=== PATIENT | female | born 1965 | race Caucasian/White ===

== ENCOUNTER 2024-03-19 12:51 | Inpatient (IN) ==
--- NOTE | 2024-03-19 13:15 | Emergency Department Note ---
HPI - URI/Sore Throat General Chief Complaint: SOB -Shortness of Breath Stated Complaint: right side pneumonia Time Seen by Provider: 03/19/24 13:08 Source: patient Limitations: no limitations History of Present Illness HPI Narrative: This is a 58 year old female patient that presents to the ER with c/o cough, congestion, and upper back pain. Patient states she was sent here by her PCP to be admitted for failed outpatient therapy for pneumonia. Patient states she has been on 2 rounds of antibiotics as an outpatient and has not gotten any better. Patient denies any chest pain, SOB, abdominal pain, fever, chills or N/V/D. Walking O2 sat 92% here in the ER MD elicited complaint: Reports cough, rhinorrhea and nasal congestion Pertinent past history: Reports pneumonia Exacerbating factors: Reports nothing Relieving factors: Reports nothing Associated symptoms: Reports rhinorrhea, nasal congestion and cough Treatments prior to arrival: Reports none Related Data Allergies Allergy/AdvReac Type Severity Reaction Status Date / Time No Known Drug Allergies Allergy Verified 03/19/24 13:15 Review of Systems Status of ROS 10 or more systems reviewed and unremark able except as noted in history and below Constitutional Denies: fever, chills, change in weight, fatigue, malaise or night sweats Eyes Denies: change in vision, blurry vision, blind spots or light sensitivity Ears, nose, mouth, and throat Reports: nasal discharge and nasal congestion; Denies: throat pain, neck pain, throat swelling, difficulty swallowing, hoarseness, mouth pain, swelling of lips/tongue or dry mouth Cardiovascular Denies: chest pain, palpitations, edema, swelling of feet/ankles or lightheadedness Respiratory Reports: cough; Denies: shortness of breath, wheezing, stridor, pain on inspiration or change in phlegm color Gastrointestinal Denies: abdominal pain, nausea, vomiting, coffee grounds in vomit, heartburn, diarrhea, constipation or bloating Genitourinary Denies: painful urination, urinary frequency, urinary urgency, urinary incontinence, blood in urine or difficulty voiding Musculoskeletal Denies: back pain, neck pain, extremity pain, extremity swelling, joint pain, limited range of motion or joint swelling Integumentary/Breast Denies: rash, itching, redness, skin pain, skin tenderness, skin swelling or sores Neurological Denies: headache, numbness in extremities, weakness in extremities or lack of coordination Psychiatric Denies: anxiety, mood swings, panic attacks, change in sleep pattern or hopelessness Endocrine Denies: excessive urination, excessive thirst, fatigue, cold intolerance or excessive sweating Allergic/Immunologic Denies: hives, throat swelling, tongue swelling, facial swelling or wheezing [facility] Social History Smoking status: current every day smoker Exam Constitutional: normal general appearance and no apparent distress Vital Signs - 24 hr 03/19/24 13:13 03/19/24 13:27 Temperature 97.9 F Pulse Rate 80 Respiratory Rate 22 Blood Pressure 124/56 Pulse Oximetry 92 L 98 Oxygen Delivery Me thod Room Air HENMT: normocephalic, head/scalp atraumatic, hearing grossly normal bilaterally, external ears normal, nasal mucous membranes normal, external nose normal, oral mucous membranes normal, oropharynx normal and dentition normal Eyes: PERRL, EOMs intact bilaterally, conjunctivae normal and no scleral icterus Neck/C-Spine: visual inspection normal and trachea midline Lymph: no lymphadenopathy noted Chest: inspection of chest normal Respiratory: breath sounds equal bilaterally, normal respiratory effort, auscultation abnormal (diminished breath sound), wheezing noted (scattered wheezes), no rales, no retractions and no use of accessory muscles Cardiovascular: normal heart rate noted, regular rhythm noted, no gallop, no rub, no murmur, no JVD, no clicks, peripheral pulses 2+ throughout and no additional abnormal heart sounds Gastrointestinal: abdomen normal to inspection, abdomen soft to palpation, nontender to palpation, nontender to percussion, nondistended, normoactive bowel sounds, no hepatosplenomegaly, no masses, no pulsatile mass, no ascites and no hernia Genitourinary: no CVA tenderness Back/Pelvis: spine normal to inspection Extremities: normal to inspection, normal to palpation, no tenderness, full ROM, no joint enlargement and no deformity Neurology: no movement abnormality noted, no focal motor deficit noted, no sensory deficits noted, gait normal, speech normal, coordination normal, no pronator drift noted, no fasciculations noted and GCS normal Psychiatry: mental status grossly normal, oriented x3, thought process normal, cooperative and affect normal Skin: skin color normal Course Course Hospital Course: 1416: due to low walking O2 sats, failed outpatient therapy and pneumonia, will admit patient to the hospital. VSS, no s/s of acute distress noted Vital Signs Vital signs: Vital Signs Temperature 97.9 F 03/19/24 13:13 Pulse Rate 80 03/19/24 13:13 Respiratory Rate 22 03/19/24 13:13 Blood Pressure 124/56 03/19/24 13:13 Pulse Oximetry 92 L 03/19/24 13:13 Oxygen Delivery Method Room Air 03/19/24 13:13 Temperature 97.9 F 03/19/24 13:13 Pulse Rate 80 03/19/24 13:13 Respiratory Rate 22 03/19/24 13:13 Blood Pressure 124/56 03/19/24 13:13 Pulse Oximetry 98 03/19/24 13:27 Oxygen Delivery Method Room Air 03/19/24 13:13 MDM - URI/Sore Throat Differential Diagnosis Upper Respiratory Differential Diagnosis: upper respiratory infection Medical Records MDM Medical Records Attestation: I reviewed the patient's medical records. Lab Data Attestation: I reviewed the patient's lab results. Labs: Lab Results 03/19/24 Range/Units 13:20 WBC 18.1 H (4.3-9.3) K/uL RBC 5.1 (4.00-5.50) M/uL Hgb 14.0 (12.5-15.8) gm/dL Hct 42.0 (35.9-46.7) % MCV 83.1 (81.0-93.7) fl MCH 27.7 (27.6-32.2) pg MCHC 33.4 (33.1-35.3) g/dl RDW 16.0 H (11.4-14.2) % Plt Count 487 H (152-353) K/uL MPV 7.1 (6.9-10.8) fl Gran % 68.3 (47.8-71.3) % Lymph % (Auto) 24.8 (20.0-43.0) % [place] % (Auto) 5.4 (3.6-9.8) % Eos % (Auto) 0.6 (0.4-2.8) % Baso % (Auto) 0.9 H (0.1-0.85) Lymph # (Auto) 4.5 H (1.1-3.1) [place] # (Auto) 1.0 L (1.1-3.1) Eos # (Auto) 0.1 (0.0-0.2) Baso # (Auto) 0.2 H (0.0-0.1) Absolute Gran (auto) 12.4 H (2.3-6.0) Sodium 126 L (136-145) mmol/L Potassium 3.3 L (3.6-5.2) mmol/L Chloride 90.0 L (98-107) mmol/L Carbon Dioxide 28 (21-32) mmol/L Anion Gap 8.0 (4-14) mEq/L BUN 16 (7-18) mg/dL Creatinine 1.6 H (0.6-1.3) mg/dL Estimated GFR 37.4 (>59.9) Glucose 215 H (70-110) mg/dL Calcium 8.7 (8.5-10.1) mg/dL Total Bilirubin 0.52 (0.0-1.0) mg/dL AST 40 H (15-37) U/L ALT 34 (30-65) U/L Alkaline Phosphatase 140 H (50-136) U/L Total Protein 7.3 (6.4-8.2) g/dL Albumin 3.2 L (3.4-5.0) g/dL Imaging Data Attestation imaging: I have reviewed the pertinent imaging results. Discharge Plan Discharge Patient Disposition: Admitted As Inpatient Condition: Stable Chief Complaint: SOB -Shortness of Breath Clinical Impression: Community acquired pneumonia, Dehydration, Acute renal failure, Acute hyponatremia Print Language: Estonian Referrals: Provider,NO PCP [Primary Care Provider] - Time of Disposition: 14:19
[2024-03-19] MEDS: METHYLPREDNISOLONE SOD SUCC/PF 125 MG/2 ML VIAL IVP ONE (13:18)
[2024-03-19 13:26] LABS: Basophils #(Absolute) Auto 0.2 (0.0-0.1); Basophils%(Percent) Auto 0.9 (0.1-0.85); Eosinophils#(Absolute)Auto 0.1 (0.0-0.2); Eosinophils%(Percent) Auto 0.6 % (0.4-2.8); Granulocytes % - Auto 68.3 % (47.8-71.3); Granulocytes#(Absolute)- Auto 12.4 (2.3-6.0); Mean Corpuscular Volume 83.1 fl (81.0-93.7); Monocytes %(Percent)- Auto 5.4 % (3.6-9.8); Platelet Count 487 K/uL (152-353); White Blood Count 18.1 K/uL (4.3-9.3)
[2024-03-19] MEDS: IPRATROPIUM/ALBUTEROL SULFATE 3 ML AMPUL.NEB INH ONE (13:27)
[2024-03-19 13:36] LABS: Potassium 3.3 mmol/L (3.6-5.2)
[2024-03-19] MEDS ORDERED: 0.9 % SODIUM CHLORIDE MB+ 50 ML IV ONE (14:19)
[2024-03-19] MEDS ORDERED: AZITHROMYCIN 500 MG VIAL ONE (14:19)
[2024-03-19] MEDS ORDERED: CEFTRIAXONE SODIUM 1 GM VIAL ONE (14:19)
[2024-03-19] MEDS ORDERED: 0.9 % SODIUM CHLORIDE 250 ML IV ONE (14:19)
[2024-03-19] MEDS: AZITHROMYCIN 500 MG 500 MG in 0.9 % SODIUM CHLORIDE 250 ML IV ONE (14:20)
[2024-03-19] MEDS: CEFTRIAXONE SODIUM 1 GM in 0.9 % SODIUM CHLORIDE MB+ 50 ML IV STA (14:20)
[2024-03-19] MEDS: 0.9 % SODIUM CHLORIDE 1000 ML 1,000 ML IV STA (14:21)
[2024-03-19] MEDS: POTASSIUM CHLORIDE 20 MEQ TAB.ER.PRT PO ONE (14:42)
[2024-03-19] MEDS ORDERED: POTASSIUM CHLORIDE 20 MEQ TAB.ER.PRT PO ONE (14:42)
[2024-03-19] MEDS ORDERED: bisacodyL 10 MG SUPP.RECT PR PRN (19:17)
[2024-03-19] MEDS ORDERED: MAGNESIUM, ALUMINUM HYDROXIDE 30 ML ORAL.SUSP PO PRN (19:17)
[2024-03-19] MEDS ORDERED: ACETAMINOPHEN 500 MG TABLET PO PRN (19:17)
[2024-03-19] MEDS: 0.9 % SODIUM CHLORIDE 1000 ML 1,000 ML IV SCH (20:05)
[2024-03-19] MEDS: IPRATROPIUM/ALBUTEROL SULFATE 3 ML AMPUL.NEB INH SCH (20:20)
[2024-03-19] MEDS: guaiFENesin 100 MG/5 ML LIQUID PO PRN (20:49)
[2024-03-19] MEDS: METHYLPREDNISOLONE SOD SUCC/PF 40 MG/ML VIAL INJ SCH (23:07)
[2024-03-20] MEDS: HYDRALAZINE HCL 20 MG/ML VIAL IVP PRN (05:45)
[2024-03-20 06:03] LABS: Basophils #(Absolute) Auto 0.1 (0.0-0.1); Basophils%(Percent) Auto 0.4 (0.1-0.85); Granulocytes % - Auto 89.6 % (47.8-71.3); Granulocytes#(Absolute)- Auto 12.6 (2.3-6.0); Hematocrit 37.1 % (35.9-46.7); Mean Corpuscular Volume 82.3 fl (81.0-93.7); Monocytes #(Absolute)- Auto 0.1 (1.1-3.1); Monocytes %(Percent)- Auto 0.8 % (3.6-9.8); Platelet Count 331 K/uL (152-353); White Blood Count 14.1 K/uL (4.3-9.3)
[2024-03-20 06:15] LABS: Potassium 4.2 mmol/L (3.6-5.2)
--- NOTE | 2024-03-20 07:48 | Internal Medicine H&P ---
Internal Medicine - H&P: HPI History of Present Illness Chief complaint: pneumonia,arf,hyponatremia,leukocytosis Narrative: Pt admitted with worsening dyspnea, cough, and CP from home via ER. Had Flu A in with life flight from [place] to [facility]. Discharged from there to home after a few days and reports she never felt like she fully recovered. Started to develop similar symptoms earlier this week and went to urgent care. Started on amoxil and zpack with supportive meds. Seemed to worsen. Presented to ER and found to have atypical PNA, hyponatremia, GIOVANNI, and sepsis (tachypnea, leukocytosis, PNA, GIOVANNI). Pt feels slightly better this AM, but still weak, tired, and dyspneic. No acute events overnight and did rest better. Review of Systems Status of ROS 10 or more systems reviewed and unremark able except as noted in history and below Constitutional Denies: fever, chills, change in weight, fatigue, malaise or night sweats Eyes Denies: change in vision, blurry vision, blind spots or light sensitivity Ears, nose, mouth, and throat Reports: nasal discharge and nasal congestion; Denies: throat pain, neck pain, throat swelling, difficulty swallowing, hoarseness, mouth pain, swelling of lips/tongue or dry mouth Cardiovascular Denies: chest pain, palpitations, edema, swelling of feet/ankles, lightheadedness or shortness of breath with exertion Respiratory Reports: cough; Denies: shortness of breath, wheezing, stridor, pain on inspiration or change in phlegm color Gastrointestinal Denies: abdominal pain, nausea, vomiting, coffee grounds in vomit, heartburn, diarrhea, constipation, bloating or difficulty swallowing Genitourinary Denies: painful urination, urinary frequency, urinary urgency, urinary incontinence, blood in urine or difficulty voiding Musculoskeletal Denies: back pain, neck pain, extremity pain, extremity swelling, joint pain, limited range of motion or joint swelling Integumentary/Breast Denies: rash, itching, redness, skin pain, skin te nderness, skin swelling or sores Neurological Denies: headache, numbness in extremities, weakness in extremities or lack of coordination Psychiatric Denies: anxiety, mood swings, panic attacks, change in sleep pattern or hopelessness Endocrine Denies: excessive urination, excessive thirst, fatigue, cold intolera nce or excessive sweating Allergic/Immunologic Denies: hives, throat swelling, tongue swelling, facial swelling or wheezing [facility] Medical History (Updated 03/20/24 @ 13:32 by Josh Velasquez MD) CAD (coronary artery disease) Anemia Hypothyroid Anxiety Complications affecting other specified body systems, hypertension Social History Smoking status: current every day smoker Problems where you live: no known problems Highest level of school completed/degree received: College Meds Home Medications and Allergies Home Medications Medication Instructions Recorded Confirmed Type albuterol sulfate 2.5 mg/3 mL 2.5 mg inhalation Q8H PRN 03/20/24 03/20/24 History (0.083 %) solution for nebulization shortness of breath or wheezing albuterol sulfate 90 mcg/actuation 2 puff inhalation Q4H PRN 03/20/24 03/20/24 History aerosol inhaler shortness of breath or wheezing amoxicillin 500 mg capsule 1,000 mg PO Q8H 03/20/24 03/20/24 History aspirin 81 mg tablet,delayed 81 mg PO DAILY 03/20/24 03/20/24 History release azithromycin 250 mg tablet See Rx Instructions .Route .COMPLEX 03/20/24 03/20/24 History doxycycline hyclate 100 mg capsule 100 mg PO BID 03/20/24 03/20/24 History empagliflozin 10 mg tablet 10 mg PO DAILY 03/20/24 03/20/24 History (Jardiance) estradiol 1 mg tablet 1 mg PO DAILY 03/20/24 03/20/24 History fluticasone fur. 100 mcg-umeclid 1 inh inhalation DAILY 03/20/24 03/20/24 History 62.5 mcg-vilant 25 mcg inhalat.powder (Trelegy Ellipta) folic acid 1 mg tablet 1 mg PO DAILY 03/20/24 03/20/24 History gabapentin 600 mg tablet 1,200 mg PO BEDTIME 03/20/24 03/20/24 History hydroxyzine HCl 25 mg tablet 25 mg PO BEDTIME 03/20/24 03/20/24 History levothyroxine 88 mcg tablet 88 mcg PO QDAC 03/20/24 03/20/24 History lorazepam 1 mg tablet 1 mg PO BEDTIME 03/20/24 03/20/24 History losartan 50 mg-hydrochlorothiazide 1 tab PO DAILY 03/20/24 03/20/24 History 12.5 mg tablet methylprednisolone 4 mg tablets in See Rx Instructions .Route .COMPLEX 03/20/24 03/20/24 History a dose pack metoprolol succinate 25 mg 25 mg PO DAILY 03/20/24 03/20/24 History tablet,extended release 24 hr pantoprazole 40 mg tablet,delayed 40 mg PO DAILY 03/20/24 03/20/24 History release potassium chloride 20 mEq 20 meq PO DAILY 03/20/24 03/20/24 History tablet,extended release(part/cryst) prasugrel 10 mg tablet 10 mg PO DAILY 03/20/24 03/20/24 History propranolol 60 mg capsule,24 60 mg PO DAILY 03/20/24 03/20/24 History hr,extended release rosuvastatin 20 mg tablet 20 mg PO DAILY 03/20/24 03/20/24 History spironolactone 25 mg tablet 25 mg PO DAILY 03/20/24 03/20/24 History Allergies Allergy/AdvReac Type Severity Reaction Status Date / Time No Known Drug Allergies Allergy Verified 03/19/24 13:15 Exam Constitutional: normal general appearance, no apparent distress, abnormal body habitus (obese), no limitations and alert Vital Signs - 24 hr 03/19/24 13:13 03/19/24 13:27 03/19/24 14:30 Temperature 97.9 F Pulse Rate 80 81 Pulse Rate [Bilate ral] Respiratory Rate 22 20 Blood Pressure 124/56 137/71 Blood Pressure [Le ft Radial Artery] Pulse Oximetry 92 L 98 [facility] 03/19/24 15:30 03/19/24 17:00 03/19/24 19:00 Temperature Pulse Rate 74 79 70 Pulse Rate [Bilate ral] Respiratory Rate 18 20 20 Blood Pressure 145/69 143/74 137/65 Blood Pressure [Le ft Radial Artery] Pulse Oximetry 94 L 92 [facility] Room Air Room Air 03/19/24 19:17 03/19/24 19:25 03/19/24 20:00 Temperature 97.9 F 97.6 F Pulse Rate 70 Pulse Rate [Bilate ral] 77 Respiratory Rate 20 22 Blood Pressure 137/65 Blood Pressure [Le ft Radial Artery] 167/77 Pulse Oximetry 97 Oxygen Delivery [facility] Room Air Room Air 03/19/24 20:20 03/19/24 23:52 03/19/24 23:59 Temperature 98.4 F Pulse Rate Pulse Rate [Bilate ral] 73 Respiratory Rate 19 Blood Pressure Blood Pressure [Le ft Radial Artery] 188/66 Pulse Oximetry 97 96 93 L Oxygen Delivery Me od Room Air 03/20/24 04:00 03/20/24 04:20 03/20/24 05:45 Temperature 98.8 F Pulse Rate Pulse Rate [Bilate ral] 69 Respiratory Rate 20 Blood Pressure 180/68 Blood Pressure [[place] ft Radial Artery] 180/68 Pulse Oximetry 95 96 Oxygen Delivery Me od Room Air 03/20/24 07:37 Temperature Pulse Rate Pulse Rate [Bilate ral] Respiratory Rate Blood Pressure Blood Pressure [[place] ft Radial Artery] Pulse Oximetry 98 Oxygen Delivery Me od HENMT: normocephalic, head/scalp atraumatic, hearing grossly normal bilaterally and external ears normal Eyes: PERRL, EOMs intact bilaterally and conjunctivae normal Neck/C-Spine: visual inspection normal and trachea midline Respiratory: breath sounds equal bilaterally, normal respiratory effort, wheezing noted (scattered wheezes), no retractions and no use of accessory muscles Cardiovascular: normal heart rate noted, regular rhythm noted and no murmur Gastrointestinal: abdomen soft to palpation, nontender to palpation, nondistended and normoactive bowel sounds Back/Pelvis: thoracic spine ROM normal and lumbar spine ROM normal Extremities: normal to inspection, normal to palpation and full ROM Neurology: no movement abnormality noted, no focal motor deficit noted, speech normal, no fasciculations noted and GCS normal Psychiatry: mental status grossly normal, oriented x3, thought process normal, cooperative, affect normal, psychomotor activity normal and memory normal Internal Medicine - H&P: Reslt Labs Labs: CBC WBC 14.1 K/uL (4.3-9.3) H 03/20/24 05:24 RBC 4.5 M/uL (4.00-5.50) 03/20/24 05:24 Hgb 12.4 gm/dL (12.5-15.8) L 03/20/24 05:24 Hct 37.1 % (35.9-46.7) 03/20/24 05:24 MCV 82.3 fl (81.0-93.7) 03/20/24 05:24 MCH 27.5 pg (27.6-32.2) L 03/20/24 05:24 MCHC 33.4 g/dl (33.1-35.3) 03/20/24 05:24 RDW 16.2 % (11.4-14.2) H 03/20/24 05:24 Plt Count 331 K/uL (152-353) 03/20/24 05:24 MPV 7.3 fl (6.9-10.8) 03/20/24 05:24 Gran % 89.6 % (47.8-71.3) H 03/20/24 05:24 Lymph % (Auto) 9.2 % (20.0-43.0) L 03/20/24 05:24 [place] % (Auto) 0.8 % (3.6-9.8) L 03/20/24 05:24 Eos % (Auto) 0.0 % (0.4-2.8) L 03/20/24 05:24 Baso % (Auto) 0.4 (0.1-0.85) 03/20/24 05:24 Lymph # (Auto) 1.3 (1.1-3.1) 03/20/24 05:24 [place] # (Auto) 0.1 (1.1-3.1) L 03/20/24 05:24 Eos # (Auto) 0.0 (0.0-0.2) 03/20/24 05:24 Baso # (Auto) 0.1 (0.0-0.1) 03/20/24 05:24 Absolute Gran (auto) 12.6 (2.3-6.0) H 03/20/24 05:24 BMP Sodium 127 mmol/L (136-145) L 03/20/24 05:24 Potassium 4.2 mmol/L (3.6-5.2) 03/20/24 05:24 Chloride 93.0 mmol/L (98-107) L 03/20/24 05:24 Carbon Dioxide 24 mmol/L (21-32) 03/20/24 05:24 Anion Gap 10.0 mEq/L (4-14) 03/20/24 05:24 BUN 20 mg/dL (7-18) H 03/20/24 05:24 Creatinine 1.3 mg/dL (0.6-1.3) 03/20/24 05:24 Estimated GFR 48.0 (>59.9) 03/20/24 05:24 Glucose 327 mg/dL (70-110) H 03/20/24 05:24 Calcium 8.1 mg/dL (8.5-10.1) L 03/20/24 05:24 Total Bilirubin 0.35 mg/dL (0.0-1.0) 03/20/24 05:24 AST 17 U/L (15-37) 03/20/24 05:24 ALT 31 U/L (30-65) 03/20/24 05:24 Alkaline Phosphatase 118 U/L (50-136) 03/20/24 05:24 Total Protein 6.3 g/dL (6.4-8.2) L 03/20/24 05:24 Albumin 2.7 g/dL (3.4-5.0) L 03/20/24 05:24 Liver Function Total Bilirubin 0.35 mg/dL (0.0-1.0) 03/20/24 05:24 AST 17 U/L (15-37) 03/20/24 05:24 ALT 31 U/L (30-65) 03/20/24 05:24 Alkaline Phosphatase 118 U/L (50-136) 03/20/24 05:24 Total Protein 6.3 g/dL (6.4-8.2) L 03/20/24 05:24 Albumin 2.7 g/dL (3.4-5.0) L 03/20/24 05:24 Assessment and Plan Assessment and Plan (1) Severe sepsis: Code(s): A41.9 - Sepsis, unspecified organism; R65.20 - Severe sepsis without septic shock (2) Atypical pneumonia: Code(s): J18.9 - Pneumonia, unspecified organism (3) Acute kidney injury: Code(s): N17.9 - Acute kidney failure, unspecified (4) Hyponatremia: Code(s): E87.1 - Hypo-osmolality and hyponatremia (5) Essential (primary) hypertension: Code(s): I10 - Essential (primary) hypertension (6) GERD without esophagitis: Code(s): K21.9 - Gastro-esophageal reflux disease without esophagitis (7) Acquired hypothyroidism: Code(s): E03.9 - Hypothyroidism, unspecified (8) Atherosclerotic heart disease of [place] coronary artery without angina pectoris: Qualifiers: [place] vs. transplanted heart: [place] heart Qualified Code(s): I25.10 - Atherosclerotic heart disease of [place] coronary artery without angina pectoris Code(s): I25.10 - Atherosclerotic heart disease of [place] coronary artery without angina pectoris Plan Restart appropriate home meds. IV steroids, ABX, and fluids. Regular diet for now. Nebs and inhalers.
[2024-03-20] MEDS: SPIRONOLACTONE 50 MG TABLET PO SCH (15:20)
[2024-03-20] MEDS: EMPAGLIFLOZIN 10 MG TABLET PO SCH (15:20)
[2024-03-20] MEDS: METOPROLOL SUCCINATE 25 MG TAB.ER.24H PO SCH (15:20)
[2024-03-20] MEDS: LEVOFLOXACIN/D5W 500 MG/100 ML 500 MG/100 ML PIGGYBACK IV SCH (15:20)
[2024-03-20] MEDS: FLUTICASONE UMECLIDIN VILANTER INH SCH (15:21)
[2024-03-20] MEDS: ASPIRIN 81 MG TABLET.DR PO SCH (15:22)
[2024-03-20] MEDS: hydrOXYzine pamoate 25 MG CAPSULE PO ONE (19:59)
[2024-03-20] MEDS: LORazepam 1 MG TABLET ONE (19:59)
[2024-03-20] MEDS: GABAPENTIN 400 MG CAPSULE PO SCH (20:00)
[2024-03-20] MEDS: hydrOXYzine HCL 25 MG TABLET PO SCH (20:01)
[2024-03-20] MEDS: LORazepam 1 MG TABLET PO SCH (20:01)
[2024-03-21 05:36] LABS: Potassium 3.8 mmol/L (3.6-5.2)
[2024-03-21] MEDS: POTASSIUM CHLORIDE 20 MEQ TAB.ER.PRT PO SCH (08:05)
[2024-03-21] MEDS: ATORVASTATIN CALCIUM 40 MG TABLET PO SCH (08:05)
[2024-03-21] MEDS: LEVOTHYROXINE SODIUM 88 MCG TABLET PO SCH (08:05)
[2024-03-21] MEDS: PANTOPRAZOLE SODIUM 40 MG TABLET.DR PO SCH (08:05)
[2024-03-21] MEDS: FOLIC ACID 1 MG TABLET PO SCH (08:05)
[2024-03-21] MEDS ORDERED: NON-FORMULARY MEDICATION 1 EACH (Rosuvastatin 20 mg tablet) PO SCH (09:00)
[2024-03-21] MEDS: PRASUGREL 10 MG PO SCH (09:30)
[2024-03-21] MEDS: 0.9 % SODIUM CHLORIDE 500 ML IV ONE (09:47)
[2024-03-21] MEDS: SODIUM CHLORIDE 1,000 MG TABLET PO SCH (09:49)
[2024-03-21 10:03] LABS: Specific Gravity Urine 1.005 (1.001-1.035); Urine Appearance CLEAR (CLEAR); Urine Blood NEGATIVE (NEG - TRACE); Urine Color YELLOW (STRAW/YELL.); Urine Urobilinogen Normal (NORMAL)
[2024-03-21] MEDS: BUDESONIDE/FORMOTEROL FUMARATE 160/4.5 MCG INH SCH (11:06)
[2024-03-21] MEDS: CLOPIDOGREL BISULFATE 75 MG TABLET PO SCH (11:06)
[2024-03-21] MEDS: TIOTROPIUM BROMIDE 18 MCG CAP.W.DEV INH SCH (11:06)
[2024-03-21] MEDS: AZITHROMYCIN 500 MG 500 MG in 0.9 % SODIUM CHLORIDE 250 ML IV SCH (13:45)
[2024-03-21] MEDS: VANCOMYCIN HCL 1,500 MG in 0.9 % SODIUM CHLORIDE 500 ML IV ONE (14:05)
[2024-03-21 15:00] LABS: Amphetamine Screen Urine NEG. (NEGATIVE); Cannabinoid Screen Urine NEG. (NEGATIVE); Cocaine Screen Urine NEG. (NEGATIVE); Methadone Screen Urine NEG. (NEGATIVE); Opiate Screen Urine NEG. (NEGATIVE)
[2024-03-21] MEDS: PROPRANOLOL HCL 60 MG PO SCH (15:35)
[2024-03-21] MEDS: LOSARTAN POTASSIUM 50 MG TABLET PO SCH (15:35)
--- NOTE | 2024-03-21 17:21 | Progress Note ---
Progress Note: Subjective Subjective Interval history: Day two of hospital stay, patient has been hypertensive with a BP of 189/76 at 0750 this a.m. Patient has inspiratory and expiratory scattered wheezing with diminished breath sounds in the bases. Glucose levels have been elevated since admission, with a glucose of 235 this a.m. Due to prior hospitalization in other facilities, patient has Nosocomial Pneumonia. Physical Therapy requested for Chest Physiotherapy. Exam Exam: Patient in amaro's position upon entering room for exam. Constitutional: normal general appearance, no apparent distress, abnormal body habitus (obese), no limitations and alert Vital Signs - 24 hr 03/20/24 19:40 03/20/24 19:41 03/20/24 19:57 Temperature 98.1 F Pulse Rate [Bilate ral] 81 Respiratory Rate 22 Blood Pressure 169/68 Blood Pressure [Le ft Radial Artery] 169/70 Pulse Oximetry 99 96 Oxygen Delivery [facility] Room Air 03/20/24 23:46 03/20/24 23:57 03/21/24 00:00 Temperature 96.5 F L Pulse Rate [Bilate ral] 78 Respiratory Rate 19 Blood Pressure 166/71 Blood Pressure [Le ft Radial Artery] 166/71 Pulse Oximetry 100 [facility] 03/21/24 03:37 03/21/24 04:29 03/21/24 07:46 Temperature 98.4 F Pulse Rate [Bilate ral] 74 Respiratory Rate 17 Blood Pressure Blood Pressure [Le ft Radial Artery] 169/71 Pulse Oximetry 95 98 98 [facility] 03/21/24 07:50 03/21/24 12:00 03/21/24 12:00 Temperature 97.6 F 97.6 F 97.6 F Pulse Rate [Bilate ral] 68 73 73 Respiratory Rate 19 19 19 Blood Pressure Blood Pressure [Le ft Radial Artery] 189/76 164/67 164/67 Pulse Oximetry 100 97 97 [facility] Room Air Room Air 03/21/24 12:06 03/21/24 14:50 Temperature Pulse Rate [Bilate ral] Respiratory Rate Blood Pressure Blood Pressure [Le ft Radial Artery] Pulse Oximetry 97 98 [facility] HENMT: normocephalic, head/scalp atraumatic, hearing grossly normal bilaterally, external ears normal, nasal mucous membranes normal, external nose normal, oral mucous membranes normal, oropharynx normal and dentition normal Eyes: PERRL, EOMs intact bilaterally, conjunctivae normal and no scleral icterus Neck/C-Spine: visual inspection normal and trachea midline Lymph: no lymphadenopathy noted Chest: inspection of chest normal Respiratory: breath sounds equal bilaterally, normal respiratory effort, auscultation abnormal (diminished breath sound), wheezing noted (scattered wheezes), no rales, no retractions and no use of accessory muscles Cardiovascular: normal heart rate noted, regular rhythm noted, no gallop, no rub, no murmur, no JVD, no clicks, peripheral pulses 2+ throughout and no additional abnormal heart sounds Gastrointestinal: abdomen normal to inspection, abdomen soft to palpation, nontender to palpation, nontender to percussion, nondistended, normoactive bowel sounds, no hepatosplenomegaly, no masses, no pulsatile mass, no ascites and no hernia Genitourinary: no CVA tenderness Back/Pelvis: spine normal to inspection, thoracic spine ROM normal and lumbar spine ROM normal Extremities: normal to inspection, normal to palpation, no tenderness, full ROM, no joint enlargement and no deformity Neurology: no movement abnormality noted, no focal motor deficit noted, no sensory deficits noted, gait normal, speech normal, coordination normal, no pronator drift noted, no fasciculations noted and GCS normal Psychiatry: mental status grossly normal, oriented x3, thought process normal, cooperative, affect normal, psychomotor activity normal and memory normal Skin: skin color normal Progress Note: Objective Labs Labs: CBC WBC 14.1 K/uL (4.3-9.3) H 03/20/24 05:24 RBC 4.5 M/uL (4.00-5.50) 03/20/24 05:24 Hgb 12.4 gm/dL (12.5-15.8) L 03/20/24 05:24 Hct 37.1 % (35.9-46.7) 03/20/24 05:24 MCV 82.3 fl (81.0-93.7) 03/20/24 05:24 MCH 27.5 pg (27.6-32.2) L 03/20/24 05:24 MCHC 33.4 g/dl (33.1-35.3) 03/20/24 05:24 RDW 16.2 % (11.4-14.2) H 03/20/24 05:24 Plt Count 331 K/uL (152-353) 03/20/24 05:24 MPV 7.3 fl (6.9-10.8) 03/20/24 05:24 Gran % 89.6 % (47.8-71.3) H 03/20/24 05:24 Lymph % (Auto) 9.2 % (20.0-43.0) L 03/20/24 05:24 [place] % (Auto) 0.8 % (3.6-9.8) L 03/20/24 05:24 Eos % (Auto) 0.0 % (0.4-2.8) L 03/20/24 05:24 Baso % (Auto) 0.4 (0.1-0.85) 03/20/24 05:24 Lymph # (Auto) 1.3 (1.1-3.1) 03/20/24 05:24 [place] # (Auto) 0.1 (1.1-3.1) L 03/20/24 05:24 Eos # (Auto) 0.0 (0.0-0.2) 03/20/24 05:24 Baso # (Auto) 0.1 (0.0-0.1) 03/20/24 05:24 Absolute Gran (auto) 12.6 (2.3-6.0) H 03/20/24 05:24 BMP Sodium 127 mmol/L (136-145) L 03/21/24 04:50 Potassium 3.8 mmol/L (3.6-5.2) 03/21/24 04:50 Chloride 95.0 mmol/L (98-107) L 03/21/24 04:50 Carbon Dioxide 24 mmol/L (21-32) 03/21/24 04:50 Anion Gap 8.0 mEq/L (4-14) 03/21/24 04:50 BUN 21 mg/dL (7-18) H 03/21/24 04:50 Creatinine 1.2 mg/dL (0.6-1.3) 03/21/24 04:50 Estimated GFR 52.8 (>59.9) 03/21/24 04:50 Glucose 256 mg/dL (70-110) H 03/21/24 04:50 Calcium 8.3 mg/dL (8.5-10.1) L 03/21/24 04:50 Phosphorus 4.3 mg/dL (2.5-4.9) 03/21/24 04:50 Magnesium 2.3 mg/dL (1.8-2.4) 03/21/24 04:50 Total Bilirubin 0.31 mg/dL (0.0-1.0) 03/21/24 04:50 AST 10 U/L (15-37) L 03/21/24 04:50 ALT 22 U/L (30-65) L 03/21/24 04:50 Alkaline Phosphatase 106 U/L (50-136) 03/21/24 04:50 Total Protein 6.2 g/dL (6.4-8.2) L 03/21/24 04:50 Albumin 2.7 g/dL (3.4-5.0) L 03/21/24 04:50 Liver Function Total Bilirubin 0.31 mg/dL (0.0-1.0) 03/21/24 04:50 AST 10 U/L (15-37) L 03/21/24 04:50 ALT 22 U/L (30-65) L 03/21/24 04:50 Alkaline Phosphatase 106 U/L (50-136) 03/21/24 04:50 Total Protein 6.2 g/dL (6.4-8.2) L 03/21/24 04:50 Albumin 2.7 g/dL (3.4-5.0) L 03/21/24 04:50 Urine Urine Color Yellow (STRAW/YELL.) 03/21/24 09:58 Urine Appearance Clear (CLEAR) 03/21/24 09:58 Ur Specific [place] 1.005 (1.001-1.035) 03/21/24 09:58 Urine Protein Negative (NEGATIVE) 03/21/24 09:58 Urine Glucose (UA) 4+ (NORMAL) 03/21/24 09:58 Urine Ketones Negative (NEGATIVE) 03/21/24 09:58 Urine Occult Blood Negative (NEG - TRACE) 03/21/24 09:58 Urine Nitrite Negative (NEGATIVE) 03/21/24 09:58 Urine Bilirubin Negative (NEGATIVE) 03/21/24 09:58 Urine Urobilinogen Normal (NORMAL) 03/21/24 09:58 Ur Leukocyte Esterase Negative (NEGATIVE) 03/21/24 09:58 Progress Note: A&P Assessment and Plan (1) Nosocomial pneumonia: (2) Hyponatremia: (3) Acute kidney injury: (4) Essential (primary) hypertension: (5) GERD without esophagitis: (6) Acquired hypothyroidism: (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 transplanted heart: [place] heart Qualified Code(s): I25.10 - Atherosclerotic heart disease of [place] coronary artery without angina pectoris Plan PT Chest Physiotherapy requested and patient encouraged to move around the room added Vancomycin Hcl 1,500 mg in Sodium Chloride 500 mls @ 250 mls/hr IV ONCE - infused Potassium Chloride 20 meq PO DAILY Pantoprazole Sodium 40 mg PO DAILY Levothyroxine Sodium 88 mcg PO QDAC Folic Acid 1 mg PO DAILY Atorvastatin Calcium 40 mg PO DAILY Clopidogrel Bisulfate 75 mg PO DAILY Sodium Chloride 1,000 mg PO Q8H Budesonide/Formoterol Fumarate 160/4.5 (2) puff INH BID Tiotropium [place] 18 mcg INH DAILY Azithromycin 500 mg in Sodium Chloride 250 mls @ 250 mls/hr IV DAILY Levofloxacin/Dextrose 500 mg in 100 mls @ 50 mls/hr IV Q24H Propranolol Hcl 60 mg PO DAILY Losartan Potassium 100 mg PO DAILY Fall Risk Details Claire Fall Scale Risk Level: Moderate Fall Risk Current Medications: Current Medications Acetaminophen (Acetaminophen 500 Mg Tablet) 500 mg PO Q6H PRN PRN Reason: Pain Albuterol Sulfate (Ipratropium/Albuterol Sulfate 3 Ml Ampul.Neb) 3 ml INH RQ4 [facility] Last Admin: 03/21/24 14:51 Dose: 3 ml Aspirin (Aspirin 81 Mg Tablet.Dr) 81 mg PO DAILY [facility] Last Admin: 03/21/24 08:05 Dose: 81 mg Atorvastatin Calcium (Atorvastatin Calcium 40 Mg Tablet) 40 mg PO DAILY [facility] Last Admin: 03/21/24 08:05 Dose: 40 mg Bisacodyl (Bisacodyl 10 Mg Supp.Rect) 10 mg [place] DAILY PRN PRN Reason: Constipation Budesonide/Formoterol Fumarate (Budesonide/Formoterol Fumarate 160/4.5 Mcg) 2 puff INH BID [facility] Last Admin: 03/21/24 11:06 Dose: 2 puff Clopidogrel Bisulfate (Clopidogrel Bisulfate 75 Mg Tablet) 75 mg PO DAILY [facility] Last Admin: 03/21/24 11:06 Dose: 75 mg Empagliflozin (Empagliflozin 10 Mg Tablet) 10 mg PO DAILY [facility] Last Admin: 03/21/24 08:05 Dose: 10 mg Folic Acid (Folic Acid 1 Mg Tablet) 1 mg PO DAILY [facility] Last Admin: 03/21/24 08:05 Dose: 1 mg Gabapentin (Gabapentin 400 Mg Capsule) 1,200 mg PO BEDTIME [facility] Last Admin: 03/20/24 20:00 Dose: 1,200 mg Hydralazine HCl (Hydralazine Hcl 20 Mg/Ml Vial) 10 mg IVP Q2H PRN PRN Reason: SBP greater than 160 Last Admin: 03/20/24 19:57 Dose: 10 mg Sodium Chloride (Sodium Chloride) 1,000 mls @ 150 mls/hr IV CONT [facility] Last Admin: 03/21/24 13:45 Dose: 100 mls/hr Azithromycin 500 mg/ Sodium (Chloride) 250 mls @ 250 mls/hr IV DAILY [facility] Stop: 03/23/24 09:59 Last Infusion: 03/21/24 15:20 Dose: Infused Vancomycin HCl 1,000 mg/ (Sodium Chloride) 250 mls @ 250 mls/hr IV Q24H [facility] Levofloxacin/Dextrose (Levofloxacin/D5w 500 Mg/100 Ml) 500 mg in 100 mls @ 50 mls/hr IV Q24H [facility] Insulin Human Regular (Insulin Regular, Human 100 Unit/Ml) 0 unit SUBQ ACHS PRN; Protocol PRN Reason: hyperglycemia Last Admin: 03/21/24 14:06 Dose: 6 unit Levothyroxine Sodium (Levothyroxine Sodium 88 Mcg Tablet) 88 mcg PO QDAC [facility] Last Admin: 03/21/24 08:05 Dose: 88 mcg Lorazepam (Lorazepam 1 Mg Tablet) 1 mg PO BEDTIME [facility]; Protocol Last Admin: 03/20/24 20:01 Dose: 1 mg Losartan Potassium (Losartan Potassium 50 Mg Tablet) 100 mg PO DAILY [facility] Last Admin: 03/21/24 15:35 Dose: 100 mg Magnesium Hydroxide (Magnesium, Aluminum Hydroxide 30 Ml Oral.Susp) 30 ml PO DAILY PRN PRN Reason: gerd Methylprednisolone Sodium Succinate (Methylprednisolone Sod Succ/Pf 40 Mg/Ml Vial) 40 mg INJ Q12H [facility] Last Admin: 03/21/24 11:06 Dose: 40 mg Metoprolol Succinate (Metoprolol Succinate 25 Mg Tab.Er.24h) 25 mg PO DAILY [facility] Last Admin: 03/21/24 08:05 Dose: 25 mg Pantoprazole Sodium (Pantoprazole Sodium 40 Mg Tablet.Dr) 40 mg PO DAILY [facility] Last Admin: 03/21/24 08:05 Dose: 40 mg Potassium Chloride (Potassium Chloride 20 Meq Tab.Er.Prt) 20 meq PO DAILY [facility] Last Admin: 03/21/24 08:05 Dose: 20 meq Propranolol HCl (Propranolol Hcl 60 Mg Cap.Sa.24h) 60 mg PO DAILY [facility] Last Admin: 03/21/24 15:35 Dose: 60 mg Sodium Chloride (Sodium Chloride 1,000 Mg Tablet) 1,000 mg PO Q8H [facility] Last Admin: 03/21/24 09:49 Dose: 1,000 mg Tiotropium [place] (Tiotropium [place] 18 Mcg Cap.W.Dev) 18 mcg INH DAILY [facility] Last Admin: 03/21/24 11:06 Dose: 18 mcg Time Spent With Patient Time: Total time spent is greater than 50% in coordination of care (as documented) at patient's floor/unit and/or counseling patient: Time with patient: greater than 35 minutes
[2024-03-21] MEDS: LEVOFLOXACIN/D5W 500 MG/100 ML 500 MG/100 ML PIGGYBACK IV SCH (18:04)
[2024-03-22 05:05] LABS: Potassium 3.9 mmol/L (3.6-5.2)
[2024-03-22] MEDS: guaiFENesin 100 MG/5 ML LIQUID PO ONE (05:16)
[2024-03-22 05:51] LABS: Basophils%(Percent) Auto 0.1 (0.1-0.85); Granulocytes#(Absolute)- Auto 12.2 (2.3-6.0); Hematocrit 35.3 % (35.9-46.7); Mean Corpuscular Volume 83.5 fl (81.0-93.7); Monocytes #(Absolute)- Auto 0.6 (1.1-3.1); Monocytes %(Percent)- Auto 4.5 % (3.6-9.8); Platelet Count 313 K/uL (152-353); White Blood Count 14.4 K/uL (4.3-9.3)
[2024-03-22 07:03] LABS: RBC Morphology Normal (Normal); Total Cells Counted 100
[2024-03-22] MEDS: VANCOMYCIN HCL 1,000 MG in 0.9 % SODIUM CHLORIDE 250 ML IV SCH (13:47)
--- NOTE | 2024-03-22 17:03 | Progress Note ---
Progress Note: Subjective Subjective Interval history: Day three of hospital stay, patient A1C resulted as 6.8, confirming Diabetic diagnosis; patient was informed this A.M and received education on diet and medication needs. Breath sounds have improved from previous day. Pulmonary Rehab is recommended upon discharge from hospital. Patient was cautioned on low immune system and recommended wearing a mask when going around others for the next 10 days. Exam Exam: Patient in amaro's position upon entering room for exam. She was able to sit up at bedside with ease during visit. Constitutional: normal general appearance, no apparent distress, abnormal body habitus (obese), no limitations and alert Vital Signs - 24 hr 03/21/24 20:00 03/21/24 20:51 03/22/24 00:00 Temperature 97.5 F L 97.1 F L Pulse Rate [Bilate ral] 73 86 Respiratory Rate 22 18 Blood Pressure Blood Pressure [Le ft Radial Artery] 165/59 194/81 Pulse Oximetry 97 98 96 Oxygen Delivery [facility] Room Air Room Air 03/22/24 00:58 03/22/24 02:38 03/22/24 04:00 Temperature 98.3 F Pulse Rate [Bilate ral] 83 Respiratory Rate 19 Blood Pressure 194/81 175/75 Blood Pressure [Le ft Radial Artery] 189/72 Pulse Oximetry 95 Oxygen Delivery [facility] Room Air 03/22/24 04:26 03/22/24 05:37 03/22/24 08:00 Temperature 98.6 F Pulse Rate [Bilate ral] 73 Respiratory Rate 19 Blood Pressure 189/72 179/67 Blood Pressure [Le ft Radial Artery] 185/89 Pulse Oximetry 97 Oxygen Delivery [facility] Room Air 03/22/24 08:52 03/22/24 11:30 03/22/24 12:00 Temperature 98 F Pulse Rate [Bilate ral] 68 Respiratory Rate 19 Blood Pressure Blood Pressure [Le ft Radial Artery] 165/70 Pulse Oximetry 97 100 [facility] 03/22/24 16:00 Temperature 97.6 F Pulse Rate [Bilate ral] 68 Respiratory Rate 19 Blood Pressure Blood Pressure [Le ft Radial Artery] 157/55 Pulse Oximetry 98 Oxygen Delivery [facility] Room Air HENMT: normocephalic, head/scalp atraumatic, hearing grossly normal bilaterally, external ears normal, nasal mucous membranes normal, external nose normal, oral mucous membranes normal, oropharynx normal and dentition normal Eyes: PERRL, EOMs intact bilaterally, conjunctivae normal and no scleral icterus Neck/C-Spine: visual inspection normal and trachea midline Lymph: no lymphadenopathy noted Chest: inspection of chest normal Respiratory: breath sounds equal bilaterally, normal respiratory effort, clear to auscultation bilaterally, wheezing noted (scattered wheezes), no rales, no retractions and no use of accessory muscles Cardiovascular: normal heart rate noted, regular rhythm noted, no gallop, no rub, no murmur, no JVD, no clicks, peripheral pulses 2+ throughout and no additional abnormal heart sounds Gastrointestinal: abdomen normal to inspection, abdomen soft to palpation, nontender to palpation, nontender to percussion, nondistended, normoactive bowel sounds, no hepatosplenomegaly, no masses, no pulsatile mass, no ascites and no hernia Genitourinary: no CVA tenderness Back/Pelvis: spine normal to inspection, thoracic spine ROM normal and lumbar spine ROM normal Extremities: normal to inspection, normal to palpation, no tenderness, full ROM, no joint enlargement and no deformity Neurology: no movement abnormality noted, no focal motor deficit noted, no sensory deficits noted, gait normal, speech normal, coordination normal, no pronator drift noted, no fasciculations noted and GCS normal Psychiatry: mental status grossly normal, oriented x3, thought process normal, cooperative, affect normal, psychomotor activity normal and memory normal Skin: skin color normal Progress Note: Objective Labs Labs: CBC WBC 14.4 K/uL (4.3-9.3) H 03/22/24 04:05 RBC 4.2 M/uL (4.00-5.50) 03/22/24 04:05 Hgb 11.7 gm/dL (12.5-15.8) L 03/22/24 04:05 Hct 35.3 % (35.9-46.7) L 03/22/24 04:05 MCV 83.5 fl (81.0-93.7) 03/22/24 04:05 MCH 27.6 pg (27.6-32.2) 03/22/24 04:05 MCHC 33.1 g/dl (33.1-35.3) 03/22/24 04:05 RDW 16.1 % (11.4-14.2) H 03/22/24 04:05 Plt Count 313 K/uL (152-353) 03/22/24 04:05 MPV 7.5 fl (6.9-10.8) 03/22/24 04:05 Gran % 85.0 % (47.8-71.3) H 03/22/24 04:05 Lymph % (Auto) 10.4 % (20.0-43.0) L 03/22/24 04:05 [place] % (Auto) 4.5 % (3.6-9.8) 03/22/24 04:05 Eos % (Auto) 0.0 % (0.4-2.8) L 03/22/24 04:05 Baso % (Auto) 0.1 (0.1-0.85) 03/22/24 04:05 Lymph # (Auto) 1.5 (1.1-3.1) 03/22/24 04:05 [place] # (Auto) 0.6 (1.1-3.1) L 03/22/24 04:05 Eos # (Auto) 0.0 (0.0-0.2) 03/22/24 04:05 Baso # (Auto) 0.0 (0.0-0.1) 03/22/24 04:05 Absolute Gran (auto) 12.2 (2.3-6.0) H 03/22/24 04:05 BMP Sodium 131 mmol/L (136-145) L 03/22/24 04:05 Potassium 3.9 mmol/L (3.6-5.2) 03/22/24 04:05 Chloride 98.0 mmol/L (98-107) 03/22/24 04:05 Carbon Dioxide 23 mmol/L (21-32) 03/22/24 04:05 Anion Gap 10.0 mEq/L (4-14) 03/22/24 04:05 BUN 23 mg/dL (7-18) H 03/22/24 04:05 Creatinine 1.1 mg/dL (0.6-1.3) 03/22/24 04:05 Estimated GFR 58.6 (>59.9) 03/22/24 04:05 Glucose 207 mg/dL (70-110) H 03/22/24 04:05 Hemoglobin A1c 6.8 % (4.8-6.0) H 03/21/24 04:50 Calcium 8.0 mg/dL (8.5-10.1) L 03/22/24 04:05 Phosphorus 3.7 mg/dL (2.5-4.9) 03/22/24 04:05 Magnesium 2.0 mg/dL (1.8-2.4) 03/22/24 04:05 Total Bilirubin 0.34 mg/dL (0.0-1.0) 03/22/24 04:05 AST 14 U/L (15-37) L 03/22/24 04:05 ALT 20 U/L (30-65) L 03/22/24 04:05 Alkaline Phosphatase 106 U/L (50-136) 03/22/24 04:05 Total Protein 5.8 g/dL (6.4-8.2) L 03/22/24 04:05 Albumin 2.7 g/dL (3.4-5.0) L 03/22/24 04:05 Liver Function Total Bilirubin 0.34 mg/dL (0.0-1.0) 03/22/24 04:05 AST 14 U/L (15-37) L 03/22/24 04:05 ALT 20 U/L (30-65) L 03/22/24 04:05 Alkaline Phosphatase 106 U/L (50-136) 03/22/24 04:05 Total Protein 5.8 g/dL (6.4-8.2) L 03/22/24 04:05 Albumin 2.7 g/dL (3.4-5.0) L 03/22/24 04:05 Urine Urine Color Yellow (STRAW/YELL.) 03/21/24 09:58 Urine Appearance Clear (CLEAR) 03/21/24 09:58 Ur Specific [place] 1.005 (1.001-1.035) 03/21/24 09:58 Urine Protein Negative (NEGATIVE) 03/21/24 09:58 Urine Glucose (UA) 4+ (NORMAL) 03/21/24 09:58 Urine Ketones Negative (NEGATIVE) 03/21/24 09:58 Urine Occult Blood Negative (NEG - TRACE) 03/21/24 09:58 Urine Nitrite Negative (NEGATIVE) 03/21/24 09:58 Urine Bilirubin Negative (NEGATIVE) 03/21/24 09:58 Urine Urobilinogen Normal (NORMAL) 03/21/24 09:58 Ur Leukocyte Esterase Negative (NEGATIVE) 03/21/24 09:58 Imaging Chest x-ray: Radiologist's impression: XR CHEST 2V Date of Service: 03/22/24 HISTORY: bilateral pneumonia; HX: CAD, HTN COMPARISON: None. FINDINGS: The trachea is midline. The cardiac silhouette is normal in size. Mild emphysema is present. The lungs are clear without focal infiltrate or effusion. The bony thorax is unremarkable. IMPRESSION: No acute cardiopulmonary disease. 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 transplanted heart: [place] heart Qualified Code(s): I25.10 - Atherosclerotic heart disease of [place] coronary artery without angina pectoris Plan Start: Vancomycin Hcl 1,000 mg in Sodium Chloride 250 mls @ 250 mls/hr IV Q24H Repeat CXR Today Fall Risk Details Claire Fall Scale Risk Level: Moderate Fall Risk Current Medications: Current Medications Acetaminophen (Acetaminophen 500 Mg Tablet) 500 mg PO Q6H PRN PRN Reason: Pain Albuterol Sulfate (Ipratropium/Albuterol Sulfate 3 Ml Ampul.Neb) 3 ml INH RQ4 [facility] Last Admin: 03/22/24 15:13 Dose: Not Given Aspirin (Aspirin 81 Mg Tablet.) 81 mg PO DAILY [facility] Last Admin: 03/22/24 09:48 Dose: 81 mg Atorvastatin Calcium (Atorvastatin Calcium 40 Mg Tablet) 40 mg PO DAILY [facility] Last Admin: 03/22/24 09:47 Dose: 40 mg Bisacodyl (Bisacodyl 10 Mg Supp.Rect) 10 mg [place] DAILY PRN PRN Reason: Constipation Budesonide/Formoterol Fumarate (Budesonide/Formoterol Fumarate 160/4.5 Mcg) 2 puff INH BID [facility] Last Admin: 03/22/24 09:49 Dose: 2 puff Clopidogrel Bisulfate (Clopidogrel Bisulfate 75 Mg Tablet) 75 mg PO DAILY [facility] Last Admin: 03/22/24 09:48 Dose: 75 mg Empagliflozin (Empagliflozin 10 Mg Tablet) 10 mg PO DAILY [facility] Last Admin: 03/22/24 09:48 Dose: 10 mg Folic Acid (Folic Acid 1 Mg Tablet) 1 mg PO DAILY [facility] Last Admin: 03/22/24 09:47 Dose: 1 mg Gabapentin (Gabapentin 400 Mg Capsule) 1,200 mg PO BEDTIME [facility] Last Admin: 03/21/24 20:39 Dose: 1,200 mg Hydralazine HCl (Hydralazine Hcl 20 Mg/Ml Vial) 10 mg IVP Q2H PRN PRN Reason: SBP greater than 160 Last Admin: 03/22/24 04:26 Dose: 10 mg Sodium Chloride (Sodium Chloride) 1,000 mls @ 150 mls/hr IV CONT [facility] Last Admin: 03/22/24 13:47 Dose: 100 mls/hr Vancomycin HCl 1,000 mg/ (Sodium Chloride) 250 mls @ 250 mls/hr IV Q24H [facility] Last Infusion: 03/22/24 16:16 Dose: Infused Levofloxacin/Dextrose (Levofloxacin/D5w 500 Mg/100 Ml) 500 mg in 100 mls @ 50 mls/hr IV Q24H [facility] Last Admin: 03/21/24 18:04 Dose: 50 mls/hr Insulin Human Regular (Insulin Regular, Human 100 Unit/Ml) 0 unit SUBQ ACHS PRN; Protocol PRN Reason: hyperglycemia Last Admin: 03/22/24 09:48 Dose: 6 unit Levothyroxine Sodium (Levothyroxine Sodium 88 Mcg Tablet) 88 mcg PO QDAC [facility] Last Admin: 03/22/24 06:32 Dose: 88 mcg Lorazepam (Lorazepam 1 Mg Tablet) 1 mg PO BEDTIME [facility]; Protocol Last Admin: 03/21/24 20:39 Dose: 1 mg Losartan Potassium (Losartan Potassium 50 Mg Tablet) 100 mg PO DAILY [facility] Last Admin: 03/22/24 09:48 Dose: 100 mg Magnesium Hydroxide (Magnesium, Aluminum Hydroxide 30 Ml Oral.Susp) 30 ml PO DAILY PRN PRN Reason: gerd Methylprednisolone Sodium Succinate (Methylprednisolone Sod Succ/Pf 40 Mg/Ml Vial) 40 mg INJ Q12H [facility] Last Admin: 03/22/24 13:47 Dose: 40 mg Metoprolol Succinate (Metoprolol Succinate 25 Mg Tab.Er.24h) 25 mg PO DAILY [facility] Last Admin: 03/22/24 09:47 Dose: 25 mg Pantoprazole Sodium (Pantoprazole Sodium 40 Mg Tablet.Dr) 40 mg PO DAILY [facility] Last Admin: 03/22/24 09:47 Dose: 40 mg Potassium Chloride (Potassium Chloride 20 Meq Tab.Er.Prt) 20 meq PO DAILY [facility] Last Admin: 03/22/24 09:48 Dose: 20 meq Propranolol HCl (Propranolol Hcl 60 Mg Cap.Sa.24h) 60 mg PO DAILY [facility] Last Admin: 03/22/24 09:47 Dose: 60 mg Sodium Chloride (Sodium Chloride 1,000 Mg Tablet) 1,000 mg PO Q8H [facility] Last Admin: 03/22/24 09:49 Dose: 1,000 mg Tiotropium [place] (Tiotropium [place] 18 Mcg Cap.W.Dev) 18 mcg INH DAILY [facility] Last Admin: 03/22/24 09:48 Dose: 18 mcg Time Spent With Patient Time: Total time spent is greater than 50% in coordination of care (as documented) at patient's floor/unit and/or counseling patient:
[2024-03-23 05:15] LABS: Basophils%(Percent) Auto 0.3 (0.1-0.85); Granulocytes % - Auto 80.7 % (47.8-71.3); Granulocytes#(Absolute)- Auto 13.6 (2.3-6.0); Hematocrit 40.2 % (35.9-46.7); Mean Corpuscular Volume 84.5 fl (81.0-93.7); Monocytes #(Absolute)- Auto 1.2 (1.1-3.1); Monocytes %(Percent)- Auto 6.9 % (3.6-9.8); Platelet Count 380 K/uL (152-353); White Blood Count 16.8 K/uL (4.3-9.3)
[2024-03-23 06:05] LABS: Potassium 3.9 mmol/L (3.6-5.2)
--- NOTE | 2024-03-23 10:50 | Discharge Summary ---
DS: Providers Provider Date of admission: 03/19/24 16:09 Primary care physician: NO PCP Provider Consults: 03/21/24 11:20 Consult to Physical Therapy Routine Comment: Consulting Provider: Reason for consultation: pneumnia bilateral Physician Instructions: posterior drainage 03/22/24 12:46 Consult to Pharmacy Routine Comment: Consulting Provider: Physician Instructions: Reason for consultation: Dm education and ozempic vs mounjaro and weight and medication plan overall DS: Diagnosis Discharge Diagnosis (1) Nosocomial pneumonia: (2) Hyponatremia: (3) Acute kidney injury: (4) Essential (primary) hypertension: (5) GERD without esophagitis: (6) Acquired hypothyroidism: (7) Atherosclerotic heart disease of [place] coronary artery without angina pectoris: Qualifiers: [place] vs. transplanted heart: [place] heart Qualified Code(s): I25.10 - Atherosclerotic heart disease of [place] coronary artery without angina pectoris (8) New onset type 2 diabetes mellitus: (9) Hyperglycemia due to type 2 diabetes mellitus: DS: Summary Hospital Course Hospital Course: 1416: due to low walking O2 sats, failed outpatient therapy and pneumonia, will admit patient to the hospital. VSS, no s/s of acute distress noted Time Spent with Patient Time attestation: Total time spent providing and/or coordinating discharge services: Exam Constitutional: Vital Signs - 24 hr 03/22/24 11:30 03/22/24 12:00 03/22/24 16:00 Temperature 98 F 97.6 F Pulse Rate [Bilate ral] 68 68 Respiratory Rate 19 19 Blood Pressure Blood Pressure [Le ft Radial Artery] 165/70 157/55 Pulse Oximetry 100 98 98 [facility] 03/22/24 20:00 03/23/24 00:00 03/23/24 04:00 Temperature 97.5 F L 97.4 F L 97.5 F L Pulse Rate [Bilate ral] 65 68 64 Respiratory Rate 19 20 19 Blood Pressure Blood Pressure [Le ft Radial Artery] 164/80 184/78 182/86 Pulse Oximetry 98 97 95 [facility] Room Air Room Air 03/23/24 08:00 03/23/24 08:11 03/23/24 08:33 Temperature 98.5 F Pulse Rate [Bilate ral] 64 Respiratory Rate 21 Blood Pressure 166/75 Blood Pressure [Le ft Radial Artery] 165/70 Pulse Oximetry 98 97 Oxygen Delivery Me thod Room Air DS: Data Data Completed and Pending Labs on day of discharge: Labs from last 24 hours 03/23/24 05:10 WBC 16.8 H RBC 4.8 Hgb 13.1 Hct 40.2 MCV 84.5 MCH 27.5 L MCHC 32.6 L RDW 16.4 H Plt Count 380 H MPV 7.4 Gran % 80.7 H Lymph % (Auto) 12.1 L [place] % (Auto) 6.9 Eos % (Auto) 0.0 L Baso % (Auto) 0.3 Lymph # (Auto) 2.0 [place] # (Auto) 1.2 Eos # (Auto) 0.0 Baso # (Auto) 0.0 Absolute Gran (auto) 13.6 H Sodium 132 L Potassium 3.9 Chloride 98.0 Carbon Dioxide 27 Anion Gap 7.0 BUN 26 H Creatinine 1.0 Estimated GFR 65.7 Glucose 184 H Calcium 8.7 Phosphorus 4.1 Magnesium 2.1 Total Bilirubin 0.38 AST 24 ALT 28 L Alkaline Phosphatase 114 B-Natriuretic Peptide 38.2 Total Protein 6.6 Albumin 3.1 L Discharge Plan Discharge Disposition: Home, Self-Care Condition: Improved Discharge Medications: Continued albuterol sulfate 2.5 mg /3 mL (0.083 %) solution for nebulization 2.5 mg inhalation Q8H PRN (Reason: shortness of breath or wheezing) albuterol sulfate 90 mcg/actuation HFA aerosol inhaler 2 puff INHALATION Q4H PRN (Reason: shortness of breath or wheezing) aspirin 81 mg tablet,delayed release (DR/EC) 81 mg PO DAILY Jardiance 10 mg tablet 10 mg PO DAILY estradiol 1 mg tablet 1 mg PO DAILY Trelegy Ellipta 100-62.5-25 mcg blister with device 1 inh INHALATION DAILY folic acid 1 mg tablet 1 mg PO DAILY gabapentin 600 mg tablet 1,200 mg PO BEDTIME hydroxyzine HCl 25 mg tablet 25 mg PO BEDTIME levothyroxine 88 mcg tablet 88 mcg PO QDAC metoprolol succinate 25 mg tablet extended release 24 hr 25 mg PO DAILY pantoprazole 40 mg tablet,delayed release (DR/EC) 40 mg PO DAILY potassium chloride 20 mEq tablet,ER particles/crystals 20 meq PO DAILY prasugrel HCl 10 mg tablet 10 mg PO DAILY rosuvastatin 20 mg tablet 20 mg PO DAILY spironolactone 25 mg tablet 25 mg PO DAILY clopidogrel [Plavix] 75 mg tablet 75 mg PO DAILY Discontinued amoxicillin 500 mg capsule 1,000 mg PO Q8H azithromycin 250 mg tablet See Rx Instructions .ROUTE .COMPLEX Rx Instructions: 500 MG ON DAY ONE, THEN 250MG ON DAY 2-5; doxycycline hyclate 100 mg capsule 100 mg PO BID lorazepam 1 mg tablet 1 mg PO BEDTIME losartan-hydrochlorothiazide 50-12.5 mg tablet 1 tab PO DAILY methylprednisolone 4 mg tablets,dose pack See Rx Instructions .ROUTE .COMPLEX Rx Instructions: TAKE DIRECTED ON BOX; propranolol 60 mg capsule,extended release 24 hr 60 mg PO DAILY Interventions: MED/SURG & ICU Observation Charge Sheet Last Done: 03/23/24 05:57 Forms: Portal/Health Info Access Inst Follow-Ups: Brooke Bellamy DO [Physician] - (PATIENT WISHES TO USE DR. BELLAMY PRIMARY. INFORMED PATIENT SHE WOULD HAVE TO GO TO [facility] TO FILL OUT A NEW PATIENT PACKET.) Provider,NO PCP [Primary Care Provider] -
[2024-03-23 12:31] VITALS: BP 165/50; PULSE 62; RESP 19; TEMP 98.1
[2024-03-23] MEDS ORDERED: SODIUM CHLORIDE 1,000 MG TABLET PO SCH (13:00)
--- NOTE | 2024-03-23 14:04 | Discharge Summary ---
DS: Providers Provider Date of admission: 03/19/24 16:09 Primary care physician: NO PCP Provider Admitting clinician: Tete Bruno Attending physician on admission: Josh Velasquez Consults: 03/21/24 11:20 Consult to Physical Therapy Routine Comment: Consulting Provider: Reason for consultation: pneumnia bilateral Physician Instructions: posterior drainage 03/22/24 12:46 Consult to Pharmacy Routine Comment: Consulting Provider: Physician Instructions: Reason for consultation: Dm education and ozempic vs mounjaro and weight and medication plan overall Attending physician on discharge: Brooke Bach Discharging clinician: Brooke Bach Anticipated date of discharge: 03/23/24 DS: Diagnosis Discharge Diagnosis (1) Nosocomial pneumonia: (2) Hyponatremia: (3) New onset type 2 diabetes mellitus: (4) Acute kidney injury: (5) Essential (primary) hypertension: (6) GERD without esophagitis: (7) Acquired hypothyroidism: (8) Atherosclerotic heart disease of [place] coronary artery without angina pectoris: Qualifiers: [place] vs. 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 DS: Summary Hospital Course Hospital Course: Pt admitted with worsening dyspnea, cough, and CP from home via ER. Had Flu A in with life flight from [place] to [facility]. Discharged from there to home after a few days and reports she never felt like she fully recovered. Started to develop similar symptoms earlier this week and went to urgent care. Started on amoxil and zpack with supportive meds. Seemed to worsen. Presented to ER and found to have atypical PNA, hyponatremia, GIOVANNI, and sepsis (tachypnea, leukocytosis, PNA, GIOVANNI). Day one of hospital stay, patient feels slightly better this AM, but still weak, tired, and dyspneic. No acute events overnight and did rest better. Day two of hospital stay, patient has been hypertensive with a BP of 189/76 at 0750 this a.m. Patient has inspiratory and expiratory scattered wheezing with diminished breath sounds in the bases. Glucose levels have been elevated since admission, with a glucose of 235 this a.m. Due to prior hospitalization in other facilities, patient has Nosocomial Pneumonia. Physical Therapy requested for Chest Physiotherapy. Day three of hospital stay, patient A1C resulted as 6.8, confirming Diabetic diagnosis; patient was informed this A.M and received education on diet and medication needs. Breath sounds have improved from previous day. Pulmonary Rehab is recommended upon discharge from hospital. Patient was cautioned on low immune system and recommended wearing a mask when going around others for the next 10 days. Day four of hospital stay, patient feels a lot better from time of admission. Patient is ready for discharge home for self care. Provider discussed smoking cessation with patient. Patient was educated on Diabetes medication and dietary changes necessary. Patient is to follow up with PCP in 5-7 days of discharge and being sent home with salt tabs to increase sodium level. Status at Discharge Functional status at discharge: independent ambulation Overall status at discharge: patient is back to baseline Time Spent with Patient Time attestation: Total time spent providing and/or coordinating discharge services: Time spent: greater than 30 minutes Exam Exam: Patient sitting up in high amaro's position on bed upon entering room for exam. Constitutional: normal general appearance, no apparent distress, abnormal body habitus (obese), no limitations and alert Vital Signs - 24 hr 03/22/24 16:00 03/22/24 20:00 03/23/24 00:00 Temperature 97.6 F 97.5 F L 97.4 F L Pulse Rate [Bilate ral] 68 65 68 Respiratory Rate 19 19 20 Blood Pressure Blood Pressure [Le ft Radial Artery] 157/55 164/80 184/78 Pulse Oximetry 98 98 97 Oxygen Delivery Me thod Room Air Room Air Room Air 03/23/24 04:00 03/23/24 08:00 03/23/24 08:11 Temperature 97.5 F L 98.5 F Pulse Rate [Bilate ral] 64 64 Respiratory Rate 19 21 Blood Pressure Blood Pressure [Le ft Radial Artery] 182/86 165/70 Pulse Oximetry 95 98 97 Oxygen Delivery Me thod Room Air Room Air 03/23/24 08:33 03/23/24 11:17 Temperature Pulse Rate [Bilate ral] Respiratory Rate Blood Pressure 166/75 Blood Pressure [Le ft Radial Artery] Pulse Oximetry 96 Oxygen Delivery Me thod HENMT: normocephalic, head/scalp atraumatic, hearing grossly normal bilaterally, external ears normal, nasal mucous membranes normal, external nose normal, oral mucous membranes normal, oropharynx normal and dentition normal Eyes: PERRL, EOMs intact bilaterally, conjunctivae normal and no scleral icterus Neck/C-Spine: visual inspection normal and trachea midline Lymph: no lymphadenopathy noted Chest: inspection of chest normal Respiratory: breath sounds equal bilaterally, normal respiratory effort, clear to auscultation bilaterally, no wheezes, no rales, no retractions and no use of accessory muscles Cardiovascular: normal heart rate noted, regular rhythm noted, no gallop, no rub, no murmur, no JVD, no clicks, peripheral pulses 2+ throughout and no additional abnormal heart sounds Gastrointestinal: abdomen normal to inspection, abdomen soft to palpation, nontender to palpation, nontender to percussion, nondistended, normoactive bowel sounds, no hepatosplenomegaly, no masses, no pulsatile mass, no ascites and no hernia Genitourinary: no CVA tenderness Back/Pelvis: spine normal to inspection, thoracic spine ROM normal and lumbar spine ROM normal Extremities: normal to inspection, normal to palpation, no tenderness, full ROM, no joint enlargement and no deformity Neurology: no movement abnormality noted, no focal motor deficit noted, no sensory deficits noted, gait normal, speech normal, coordination normal, no pronator drift noted, no fasciculations noted and GCS normal Psychiatry: mental status grossly normal, oriented x3, thought process normal, cooperative, affect normal, psychomotor activity normal and memory normal Skin: skin color normal DS: Data Data Completed and Pending Labs on day of discharge: Labs from last 24 hours 03/23/24 05:10 WBC 16.8 H RBC 4.8 Hgb 13.1 Hct 40.2 MCV 84.5 MCH 27.5 L MCHC 32.6 L RDW 16.4 H Plt Count 380 H MPV 7.4 Gran % 80.7 H Lymph % (Auto) 12.1 L [place] % (Auto) 6.9 Eos % (Auto) 0.0 L Baso % (Auto) 0.3 Lymph # (Auto) 2.0 [place] # (Auto) 1.2 Eos # (Auto) 0.0 Baso # (Auto) 0.0 Absolute Gran (auto) 13.6 H Sodium 132 L Potassium 3.9 Chloride 98.0 Carbon Dioxide 27 Anion Gap 7.0 BUN 26 H Creatinine 1.0 Estimated GFR 65.7 Glucose 184 H Calcium 8.7 Phosphorus 4.1 Magnesium 2.1 Total Bilirubin 0.38 AST 24 ALT 28 L Alkaline Phosphatase 114 B-Natriuretic Peptide 38.2 Total Protein 6.6 Albumin [address] scan - chest: Radiologist's impression: CT CHEST WITHOUT CONTRAST Date of Service: 03/19/24 HISTORY: SOB, pneumonia, abnormal cxrSOB, pneumonia, abnormal cxr; COMPARISON: None. TECHNIQUE: Axial CT images were obtained through the chest without contrast. Coronal reformatted images were included. All CT scans at this facility use dose modulation, iterative reconstruction, and/or weight based dosing when appropriate to reduce radiation dose to as low as reasonably achievable. FINDINGS: SUPPORT DEVICES: None HEART, VESSELS, AND MEDIASTINUM: Athero sclerotic disease in the aorta and coronary vessels LYMPH NODES: No pathologically enlarged nodes. LUNGS AND PLEURA: Lungs show multifocal areas of patchy tree-in-bud nodularity throughout the lungs bilaterally worst in the lung bases and posterior aspect of the right upper lobe AIRWAYS: Within normal limits. UPPER ABDOMEN: Within normal limits. BONES: Within normal limits. IMPRESSION: Multifocal areas of ground-glass tree-in-bud nodularity worst in the lung bases and right upper lobe favoring multifocal infection including the possibility of atypical organisms. Chest x-ray: Radiologist's impression: XR CHEST 2V Date of Service: 03/22/24 HISTORY: bilateral pneumonia; HX: CAD, HTN COMPARISON: None. FINDINGS: The trachea is midline. The cardiac silhouette is normal in size. Mild emphysema is present. The lungs are clear without focal infiltrate or effusion. The bony thorax is unremarkable. IMPRESSION: No acute cardiopulmonary disease. XR CHEST 2V Date of Service: 03/23/24 HISTORY: nargis pneumonia and leukocytosis; COMPARISON: March 22, 2024 FINDINGS: The trachea is midline. The cardiac silhouette is normal in size. Mild emphysema is present. The lungs are clear without focal infiltrate or effusion. The bony thorax is unremarkable. IMPRESSION: No acute cardiopulmonary disease. Discharge Plan Discharge Disposition: Home, Self-Care Condition: Improved Discharge Medications: New sodium chloride 1,000 mg tablet,soluble 1,000 mg PO DAILY Qty: 14 0RF metformin 500 mg tablet 500 mg PO BID Qty: 60 0RF Continued albuterol sulfate 2.5 mg /3 mL (0.083 %) solution for nebulization 2.5 mg inhalation Q8H PRN (Reason: shortness of breath or wheezing) albuterol sulfate 90 mcg/actuation HFA aerosol inhaler 2 puff INHALATION Q4H PRN (Reason: shortness of breath or wheezing) aspirin 81 mg tablet,delayed release (DR/EC) 81 mg PO DAILY Jardiance 10 mg tablet 10 mg PO DAILY estradiol 1 mg tablet 1 mg PO DAILY Trelegy Ellipta 100-62.5-25 mcg blister with device 1 inh INHALATION DAILY folic acid 1 mg tablet 1 mg PO DAILY gabapentin 600 mg tablet 1,200 mg PO BEDTIME hydroxyzine HCl 25 mg tablet 25 mg PO BEDTIME levothyroxine 88 mcg tablet 88 mcg PO QDAC metoprolol succinate 25 mg tablet extended release 24 hr 25 mg PO DAILY pantoprazole 40 mg tablet,delayed release (DR/EC) 40 mg PO DAILY potassium chloride 20 mEq tablet,ER particles/crystals 20 meq PO DAILY prasugrel HCl 10 mg tablet 10 mg PO DAILY rosuvastatin 20 mg tablet 20 mg PO DAILY spironolactone 25 mg tablet 25 mg PO DAILY clopidogrel [Plavix] 75 mg tablet 75 mg PO DAILY Discontinued amoxicillin 500 mg capsule 1,000 mg PO Q8H azithromycin 250 mg tablet See Rx Instructions .ROUTE .COMPLEX Rx Instructions: 500 MG ON DAY ONE, THEN 250MG ON DAY 2-5; doxycycline hyclate 100 mg capsule 100 mg PO BID lorazepam 1 mg tablet 1 mg PO BEDTIME losartan-hydrochlorothiazide 50-12.5 mg tablet 1 tab PO DAILY methylprednisolone 4 mg tablets,dose pack See Rx Instructions .ROUTE .COMPLEX Rx Instructions: TAKE DIRECTED ON BOX; propranolol 60 mg capsule,extended release 24 hr 60 mg PO DAILY Discharge Orders: Discharge Order (Routine); Ordered 03/23/24 Ordered By: Brooke Bach Activity: increase activity as tolerated Diet: diabetic diet Interventions: Discharge Assessment Last Done: 03/23/24 12:02 MED/SURG & ICU Observation Charge Sheet Last Done: 03/23/24 05:57 Patient Instructions: Hyponatremia (GEN), Community Acquired Pneumonia (GEN), Diabetes and Nutrition (GEN) Activity Restrictions/Additional Instructions: repeat cmp in 3 days follow up PCP 3 days increase water and electrolyte zero calorie drinks avoid allergens and extreme temps and contacts and wear a mask when around other people 12 minutes smoking cessation pulmonary rehab as an outpatient Forms: Portal/Health Info Access Inst Follow-Ups: Brooke Bach DO [Physician] - (PATIENT WISHES TO USE DR. BACH PRIMARY. INFORMED PATIENT SHE WOULD HAVE TO GO TO [facility] TO FILL OUT A NEW PATIENT PAC KET.) Provider,NO PCP [Primary Care Provider] - Discharge Date/Time: 03/23/24 13:23
== END 2024-03-23 13:23 | disposition home or self-care (01) | DRG 871 ==
LOC: ED 12:51 → MS 16:09
PROVIDERS: ADMIT Family Medicine; ATTEND Family Medicine
DX: E11.65 Type 2 diabetes mellitus with hyperglycemia; R65.20 Severe sepsis without septic shock; E03.8 Other specified hypothyroidism; I10 Essential (primary) hypertension; I25.10 Atherosclerotic heart disease of native coronary artery without angina pectoris; Y95 Nosocomial condition; J18.9 Pneumonia, unspecified organism; K21.9 Gastro-esophageal reflux disease without esophagitis; N17.8 Other acute kidney failure; R07.89 Other chest pain; A41.9 Sepsis, unspecified organism; Z72.0 Tobacco use; E86.0 Dehydration; R05.9 Cough, unspecified